=== PATIENT | male | born 1960 | race African-American/Black ===

== ENCOUNTER 2017-08-30 14:34 | Emergency (ER) | payer SELFPAY ==
[2017-08-30] MEDS ORDERED: Acetaminophen 500 MG TAB ONE (15:14)
--- NOTE | 2017-08-30 15:30 | RAD ---
CHEST 2 VIEWS: Date: 08/30/17 HISTORY: Cough. FINDINGS: No comparison. The cardiac silhouette and pulmonary vasculature are unremarkable. Mediastinum is midline. There is n o confluent air space consolidation, pneumothorax, or pleural fluid evident. IMPRESSION: No active cardiopulmonary abnormalities are demonstrated. POS: [facility]
== END 2017-08-30 15:50 | disposition home or self-care (01) ==
LOC: NAV ERS 14:34
DX: R05 Cough (principal); R07.89 Other chest pain; F17.210 Nicotine dependence, cigarettes, uncomplicated; I10 Essential (primary) hypertension; Z71.6 Tobacco abuse counseling
CPT/HCPCS: 71046; 99406

== ENCOUNTER 2021-05-24 18:48 | Emergency (ER) | payer SELFPAY | END 2021-05-24 19:14 | disposition home or self-care (01) | LOC: NAV ERS 18:48 | DX: S86.911A Strain of unspecified muscle(s) and tendon(s) at lower leg level, right leg, initial encounter (principal); I10 Essential (primary) hypertension; F17.200 Nicotine dependence, unspecified, uncomplicated; X58.XXXA Exposure to other specified factors, initial encounter | CPT/HCPCS: 99283 ==

== ENCOUNTER 2022-09-06 17:08 | Emergency (ER) | payer SELFPAY ==
[2022-09-06] MEDS ORDERED: Sodium Chloride 0.9% 100 ML ONE ×2 (17:49→19:33)
[2022-09-06] MEDS ORDERED: hydrALAZINE 20 MG/ML VIAL ONE (17:49)
[2022-09-06] MEDS ORDERED: diphenhydrAMINE 50 MG/ML VIAL ONE (17:49)
[2022-09-06] MEDS ORDERED: Metoclopramide HCl 10 MG/2 ML VIAL ONE ×2 (17:49→19:33)
[2022-09-06] MEDS ORDERED: Sodium Chloride 0.9% 1,000 ML ONE (17:49)
[2022-09-06 17:54] LABS: #Basophils 0.1 thou/uL (0.0-0.2); #Eosinphils 0.2 thou/uL (0.0-0.7); #Monocytes 0.4 thou/uL (0.11-0.59); #Neutrophils 3.4 thou/uL (1.40-6.50); %Basophils 1.1 % (0.0-1.0); %Eosinophils 4.5 % (0.0-10.0); %Lymphocytes 20.3 % (21.0-51.0); %Monocytes 7.5 % (0.0-10.0); %Neutrophils 66.6 % (42.0-75.0); Hemoglobin 15.2 g/dL (14.0-18.0); Mean Corpuscular Hemoglobin 29.2 pg (27.0-31.0); Mean Corpuscular Volume 94.3 fl (78.0-98.0); Platelet Count 255 10x3/uL (130-400); RBC Distribution Width 13.7 % (11.5-14.5); Red Blood Cell (RBC) Count 5.19 mill/uL (4.70-6.10); White Blood Cell (WBC) Count 5.1 10x3/uL (4.8-10.8)
[2022-09-06 18:08] LABS: ALT (SGPT) 11 U/L (8-55); AST (SGOT) 16 U/L (5-34); Alkaline Phosphatase 68 U/L (40-110); Anion Gap 15 mmol/L (10-20); BUN (Urea Nitrogen) 11 mg/dL (8.4-25.7); Bilirubin, Total 0.3 mg/dL (0.2-1.2); Calc. Creatinine Clearance 0 mL/min (70-130); Calcium 8.8 mg/dL (7.8-10.44); Carbon Dioxide 23 mmol/L (22-29); Chloride 102 mmol/L (98-107); Estimated GFR 70; Globulin 3.2 g/dL (2.4-3.5); Glucose 120 mg/dL (70-105); Potassium 3.9 mmol/L (3.5-5.1); Protein, Total 7.2 g/dL (6.0-8.3); Sodium 136 mmol/L (136-145)
[2022-09-06] MEDS ORDERED: Furosemide 40 MG/4 ML VIAL ONE (18:55)
[2022-09-06] MEDS ORDERED: Metoprolol Tartrate 5 MG/5 ML VIAL ONE (18:55)
== END 2022-09-06 20:40 | disposition home or self-care (01) ==
LOC: NAV ERS 17:08
DX: I10 Essential (primary) hypertension (principal); F17.200 Nicotine dependence, unspecified, uncomplicated; Z79.899 Other long term (current) drug therapy
CPT/HCPCS: 80053; 84484; 85025; 93005; 96365; 96366; 96375; J0360; J1200; J1940; J2765; J7050

== ENCOUNTER 2022-09-07 16:34 | Emergency (ER) | payer SELFPAY | END 2022-09-07 17:20 | disposition home or self-care (01) | LOC: NAV ERS 16:34 | DX: I10 Essential (primary) hypertension (principal); R51.9 Headache, unspecified; F17.200 Nicotine dependence, unspecified, uncomplicated; Z79.899 Other long term (current) drug therapy; Z87.2 Personal history of diseases of the skin and subcutaneous tissue | CPT/HCPCS: 99283 ==